=== PATIENT | male | born 1995 | race Two or more races ===

== ENCOUNTER 2021-12-27 07:18 | Emergency (ER) | payer OTHER ==
[~2021-12-27] VITALS: Ht 175.3 cm; Wt 73.0 kg
[2021-12-27] MEDS ORDERED: NAPROSYN500 MG PO (08:07)
== END 2021-12-27 08:25 | disposition home or self-care (01) ==
LOC: ED 07:18
DX: S50.12XA Contusion of left forearm, initial encounter (principal); S00.81XA Abrasion of other part of head, initial encounter; S60.811A Abrasion of right wrist, initial encounter; V68.5XXA Driver of heavy transport vehicle injured in noncollision transport accident in traffic accident, initial encounter; Z23 Encounter for immunization
CPT/HCPCS: 73080; 73090; 90715; A9270